=== PATIENT | female | born 1970 | race Caucasian/White ===

== ENCOUNTER → 2016-11-27 | Outpatient (CLI) | payer OTHER ==
[~2016-11-27] MED LIST: GADOBUTROL 10 ML VIAL IVP ONE
--- NOTE | 2016-11-27 12:29 | MR ---
MRI breasts bilateral without and with contrast HISTORY: High risk for breast cancer. Family history of breast cancer in mother at age 38. COMPARISON: 24 November 2015 Technique: Precontrast sagittal fat-saturated T2-weighted and Vibrant images of both breasts are obt ained. Subsequently, during intravenous administration of 6 mL Gadavist, multiphasic sagittally acqu ired Vibrant MR images through both breasts are obtained. In addition, high resolution axial images were obtained in the axial plane pre and post contrast. Data is sent to [facility] for additional ena sis including 3D reconstruction, computer-aided detection (CAD), and color-coded phase contrast enhan cement evaluation. FINDINGS: Mild background fibrocystic enhancement. No evidence for mass or abnormal enhancement to esparza ggest invasive breast carcinoma. Metal susceptibility artifact is seen in the inferior right breast a t the biopsy marker from prior benign biopsy. No suspicious internal mammary or axillary lymph nodes. IMPRESSION: Benign. BI-RADS 2. Recommendation: Recommend continued annual screening mammography. Consider follow-up breast MRI in on e year.
== END ==
LOC: FIMAGING 07:36
PROVIDERS: ATTEND Internal Medicine Hematology & Oncology
DX: Z12.39 Encounter for other screening for malignant neoplasm of breast (principal); Z80.3 Family history of malignant neoplasm of breast
CPT/HCPCS: 0159T; A9585; C8908

== ENCOUNTER → 2017-05-07 | Outpatient (CLI) | payer OTHER | LOC: FIMAGING 10:37 | PROVIDERS: ATTEND Internal Medicine Hematology & Oncology | DX: Z12.31 Encounter for screening mammogram for malignant neoplasm of breast (principal); Z80.3 Family history of malignant neoplasm of breast | CPT/HCPCS: G0202 ==

== ENCOUNTER → 2017-12-13 | Outpatient (CLI) | payer OTHER | LOC: FIMAGING 07:08 | PROVIDERS: ATTEND Internal Medicine Hematology & Oncology | DX: Z84.81 Family history of carrier of genetic disease (principal); Z80.3 Family history of malignant neoplasm of breast | CPT/HCPCS: 0159T; A9585; C8908 ==

== ENCOUNTER → 2018-06-24 | Outpatient (CLI) | payer OTHER | DX: Z12.31 Encounter for screening mammogram for malignant neoplasm of breast (principal); Z80.3 Family history of malignant neoplasm of breast ==

== ENCOUNTER → 2018-12-04 | Outpatient (CLI) | payer OTHER | LOC: FIMAGING 08:58 | PROVIDERS: ATTEND Internal Medicine Hematology & Oncology | DX: Z12.31 Encounter for screening mammogram for malignant neoplasm of breast (principal) | CPT/HCPCS: A9585; C8908 ==

== ENCOUNTER → 2018-12-22 | Outpatient (CLI) | payer OTHER | LOC: BMCIMAGING 08:46 | PROVIDERS: ATTEND Physician Assistant | DX: S83.011A Lateral subluxation of right patella, initial encounter (principal); S83.012A Lateral subluxation of left patella, initial encounter; M25.861 Other specified joint disorders, right knee; M25.862 Other specified joint disorders, left knee ==